=== PATIENT | female | born 1950 | race Caucasian/White ===

== ENCOUNTER → 2016-11-22 | Outpatient (CLI) | payer OTHER ==
[~2016-11-22] MED LIST: CRAN200C4 PO; FISH1CAP2 PO; GINK120C PO; IOHEXOL 300 MG/ML 100ml INJECTION ONE; NORMAL SALINE 100 ML ONE; OMEP20TA2 PO; SALINE FLUSH 10ml SYRINGE ONE
--- NOTE | 2016-11-22 15:32 | DI ---
Indication: ITS.REASON: R10.31RLQ ABDOMEN PAIN PROCEDURE: CT ABD/PELVIS W/CONTRAST ONLY: Encounter: Initial Comparison: None Technique: Axial CT images were performed through the abdomen and pelvis after the administration of intravenous contrast. Coronal and sagittal two-dimensional reformats. Automated Exposure Control and Iterative Reconstruction dose reducing techniques were utilized. Contrast: Omnipaque 300 100 mL Findings: The lung bases are clear. The liver appears normal. Calcified granulomas within the liver. No bile duct dilatation. The spleen with accessory splenule, pancreas and right adrenal gland are normal. 2.5 cm left adrenal mass is indeterminate. The kidneys are normal. No abdominal or pelvic lymphadenopathy. Bladder is thin walled and normal. Uterus is surgically absent. No free fluid or evidence of a bowel obstruction. Mild sigmoid diverticulosis without diverticulitis. Bone windows show an age indeterminate moderate compression fracture of L1. Appendix is not seen and reportedly surgically absent. Impression: 1. No acute disease process seen in the abdomen or pelvis. 2. 2.5 cm left adrenal mass. This could be further evaluated with adrenal mass protocol CT or MRI. .
== END ==
LOC: IMA 12:52
PROVIDERS: ATTEND Nurse Practitioner
DX: E27.8 Other specified disorders of adrenal gland (principal); R10.31 Right lower quadrant pain
CPT/HCPCS: 74177; J7050; Q9967

== ENCOUNTER → 2016-11-26 | Outpatient (CLI) | payer OTHER ==
[~2016-11-26] MED LIST changes: +GADOBUTROL 10mMol/10ml INJECTION IV ONE; -IOHEXOL 300 MG/ML 100ml INJECTION ONE; -NORMAL SALINE 100 ML ONE; +NORMAL SALINE 50 ML IV ONE
--- NOTE | 2016-11-26 15:34 | DI ---
Indication: ITS.REASON: R19.09 Other intra-abdominal and pelvic swelling, mass and lump PROCEDURE: MRI ABDOMEN W/WO CONTRAST: Encounter: Initial Comparison: CT abdomen and pelvis dated November 22, 2016 Technique: Multiplanar multisequence MR imaging of the abdomen was performed with and without contrast. Contrast: 10 mL Gadavist Findings: The liver appears normal. The spleen, pancreas, kidneys and right adrenal gland are normal. The left adrenal mass shows T2 mild hypointensity along with T1 mild hyperintensity to skeletal muscle. On the in and out of phase imaging there is signal dropout within the mass confirming the presence of microscopic fat. On the dynamic postcontrast images there is no evidence of enhancing liver or kidney mass. The adrenal mass shows some postcontrast enhancement as expected. 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 .
== END ==
LOC: IMA 13:20
PROVIDERS: ATTEND Nurse Practitioner
DX: D35.02 Benign neoplasm of left adrenal gland (principal); R19.09 Other intra-abdominal and pelvic swelling, mass and lump
CPT/HCPCS: 74183; A9585; J7050